=== PATIENT | male | born 1990 | race Caucasian/White ===

== ENCOUNTER 2017-04-09 08:59 | Emergency (ER) | payer SELFPAY ==
[~2017-04-09] VITALS: Ht 172.7 cm; Wt 117.8 kg
[~2017-04-09 08:59] MED LIST: MOTRIN800 MG PO; NOHOMEMEDS; PERCOCET 5/31 TABLET PO; TAMIFLU75 MG PO
[2017-04-09] MEDS ORDERED: ATARAX,VISTARIL25 MG PO (10:51)
[2017-04-09] MEDS ORDERED: PREDNISONE20 MG PO (10:51)
[2017-04-09 11:11] VITALS: BP 125/80
== END 2017-04-09 11:14 | disposition home or self-care (01) ==
LOC: EME 08:59
DX: L25.5 Unspecified contact dermatitis due to plants, except food (principal)
CPT/HCPCS: 99281; 99283; J7512